=== PATIENT | female | born 1955 | race African-American/Black ===

== ENCOUNTER 2017-05-12 08:00 | Inpatient (IN) | payer OTHER ==
[~2017-05-12] VITALS: Ht 152.4 cm; Wt 86.3 kg
[2017-06-03] MEDS ORDERED: LISI40TA PO (12:27)
[2017-06-03] MEDS ORDERED: FURO1TAB60 PO (12:28)
[2017-06-03] MEDS ORDERED: PROV10TA PO (14:24)
[2017-06-03] MEDS ORDERED: LEVO75TA3 PO (14:24)
[2017-06-03] MEDS ORDERED: ESTR1TAB PO (14:24)
[2017-06-23] MEDS ORDERED: LACTATED RINGER'S 1000 ML IV PRN (06:45)
[2017-06-23] MEDS ORDERED: SODIUM CHLORID 0.9% 500 ML IV PRN (06:45)
[2017-06-23] MEDS ORDERED: CHLORHEXIDINE GLUCONATE 2 % 1 PACK (2 CLOTHS) TOPICAL PRN (06:45)
[2017-06-23] MEDS ORDERED: METOPROLOL TARTRATE 25 MG TAB PO PRN (06:45)
[2017-06-23] MEDS ORDERED: ceFAZolin 2 GM PREMIX 50 ML IV SCH (06:45)
[2017-06-23] MEDS ORDERED: POVIDONE IODINE 5% (ANTISEPSIS KIT) 4 APPLICATIONS EACH NARE PRN (06:45)
--- NOTE | 2017-06-23 06:57 | RADRPT ---
EXAM DATE/TIME: 06/23/2017 06:43 [place] COMPARISON: No previous studies available for comparison. INDICATIONS : Evaluate for pneumonia, pneumothorax and communicable disease. MEDICAL HISTORY : None. SURGICAL HISTORY : None. ENCOUNTER: Initial ACUITY: 1 day PAIN SCORE: 0/10 LOCATION: Bilateral chest FINDINGS: A single view of the chest demonstrates the lungs to be symmetrically aerated without evidence of mas s, infiltrate or effusion. The cardiomediastinal contours are unremarkable. Osseous structures are intact. CONCLUSION: Normal examination. Robe Guidry MD on June 23, 2017 at 6:55 Board Certified Radiologist. This report was verified electronically.
[2017-06-23] MEDS ORDERED: ACETAMINOPHEN 1000 MG/100 ML 100 ML IV ONE (07:02)
[2017-06-23] MEDS ORDERED: HYDROmorphone HCL PF 2 MG/ML VIAL ONE (07:03)
[2017-06-23] MEDS ORDERED: HYDROmorphone HCL PF 2 MG/ML VIAL IV PUSH PRN (11:00)
[2017-06-23] MEDS ORDERED: oxyCODONE/ACETAMINOPHEN 10 MG/325 MG TAB PO PRN (11:00)
[2017-06-23] MEDS ORDERED: LORazepam 0.5 MG TAB PO PRN (11:00)
[2017-06-23] MEDS ORDERED: oxyCODONE/ACETAMINOPHEN 5 MG/325 MG TAB PO PRN (11:00)
[2017-06-23] MEDS ORDERED: ONDANSETRON ODT 4 MG TAB SL PRN (11:00)
[2017-06-23] MEDS ORDERED: SODIUM CHLORIDE 0.9% FLUSH 10 ML FLUSH IV FLUSH PRN (11:00)
[2017-06-23] MEDS ORDERED: PROMETHAZINE INJ 25 MG/ML VIAL IM PRN (11:00)
[2017-06-23] MEDS ORDERED: DOCUSATE SODIUM 100 MG CAP PO PRN (11:00)
[2017-06-23] MEDS ORDERED: diphenhydrAMINE HCL 50 MG/ML VIAL IV PUSH PRN (11:00)
[2017-06-23] MEDS ORDERED: ACETAMINOPHEN 325 MG TAB PO PRN (11:00)
[2017-06-23] MEDS ORDERED: *morphine SULFATE 8 MG/ML PERIprocedure ONLY ONE ×2 (11:58→12:06)
[2017-06-23] MEDS ORDERED: DEXAMETHASONE SOD PHOS 4 MG/ML VIAL IV ONE (12:00)
[2017-06-23] MEDS ORDERED: PROPOFOL 200 MG/20 ML AMP IV ONE (12:00)
[2017-06-23] MEDS ORDERED: LIDOCAINE HCL 1% PF 5 ML AMPULE OTHER ONE (12:00)
[2017-06-23] MEDS ORDERED: KETOROLAC TROMETHAMINE 30 MG/ML (IVP) VIAL IV PUSH ONE (12:00)
[2017-06-23] MEDS ORDERED: LABETALOL HCL 100 MG/20 ML VIAL IV ONE (12:00)
[2017-06-23] MEDS ORDERED: ROCURONIUM INJ 50 MG/5 ML SYRINGE IV PUSH ONE (12:00)
[2017-06-23] MEDS ORDERED: GLYCOPYRROLATE 1 MG/5 ML SYRINGE IV PUSH ONE (12:00)
[2017-06-23] MEDS ORDERED: LACTATED RINGER'S 1000 ML INJ 1,000 ML IV ONE (12:00)
[2017-06-23] MEDS ORDERED: ONDANSETRON HCL 4 MG/2 ML VIAL IV PUSH ONE (12:00)
[2017-06-23] MEDS ORDERED: SODIUM CHLORIDE 0.9% 20 ML VIAL IV ONE (12:00)
[2017-06-23] MEDS ORDERED: NEOSTIGMINE 3 MG/3 ML SYR IV ONE (12:00)
[2017-06-23] MEDS ORDERED: MIDAZOLAM HCL 2 MG/2 ML VIAL IV ONE (12:00)
[2017-06-23] MEDS: D5-1/2 NS + KCL 20 MEQ INJ 1,000 ML IV SCH ×2 (12:03→19:00)
[2017-06-23] MEDS ORDERED: DO NOT ADM ANY ANTICOAGULANT DRUGS PRN (12:15)
[2017-06-23] MEDS ORDERED: PILL SPLITTER OTHER PRN (12:15)
[2017-06-23] MEDS ORDERED: *MEPERIDINE 25 MG INJ VIAL PERIprocedural Use ONLY ONE (12:27)
[2017-06-23 13:28] VITALS: BP 153/77; PULSE 73; RESP 17; TEMP 97.3; O2SAT 98
[2017-06-23 16:35] VITALS: BP_SYST 157; BP_SYST 168; BP_DIAS 91; BP_DIAS 97; PULSE 78; RESP 16; TEMP 98.3; O2SAT 96; O2SAT 97
[2017-06-23 19:25] VITALS: BP 165/91; PULSE 97; RESP 16; TEMP 99; O2SAT 99
[2017-06-23] MEDS: SODIUM CHLORIDE 0.9% FLUSH 10 ML FLUSH IV FLUSH SCH (21:00)
[2017-06-23] MEDS: ZOLPIDEM TARTRATE 5 MG TAB PO PRN (21:21)
[2017-06-23 23:54] VITALS: BP 131/84; PULSE 98; RESP 18; TEMP 97.9; O2SAT 99
[2017-06-24] MEDS: D5-1/2 NS + KCL 20 MEQ INJ 1,000 ML IV SCH (02:08)
--- NOTE | 2017-06-24 03:20 | HHI.PR ---
Subjective Remarks Doing well, pain is well controlled, tolerating her diet. Objective Vital Signs Vital Signs Date Time Temp Pulse Resp B/P (MAP) Pulse Ox O2 Delivery O2 Flow Rate FiO2 06/23/17 23:54 97.9 98 18 131/84 (100) 99 06/23/17 22:33 18 06/23/17 19:25 99.0 97 16 165/91 (115) 99 06/23/17 16:35 98.3 78 16 168/91 (116) 96 06/23/17 13:28 97.3 73 17 153/77 (102) 98 06/23/17 12:45 98.3 72 16 146/76 (99) 100 Nasal Cannula 2 06/23/17 12:30 74 14 162/80 (107) 100 Nasal Cannula 2 06/23/17 12:15 73 15 144/73 (96) 100 Nasal Cannula 3 06/23/17 12:00 76 20 137/69 (91) 100 Nasal Cannula 3 06/23/17 11:48 98.2 74 15 111/85 (94) 100 Nasal Cannula 3 06/23/17 07:02 98.3 82 18 138/88 (105) 98 I/O 06/23/17 06/23/17 06/23/17 06/24/17 06/24/17 06/24/17 07:00 15:00 23:00 07:00 15:00 23:00 Intake Total 2100 ml Output Total 850 ml 125 ml Balance 1250 ml -125 ml Intake Oral 0 ml IV Total 2100 ml Output Urine Total 350 ml 125 ml Estimated Blood Loss 500 ml Other Results Allergies Coded Allergies Type Severity Reaction Last Updated Verified No Known Allergies Allergy Unknown 06/23/17 Yes Recent Impressions Chest X-Ray 06/23/17 0000 Signed Impressions: Service Date/Time: Friday, June 23, 2017 06:43 - CONCLUSION: Normal examination. Robe Guidry MD 06/22/17 06/22/17 06/23/17 06/23/17 06/24/17 06/24/17 06:00 18:00 06:00 18:00 06:00 18:00 Intake Total 2100 ml 2439 ml Output Total 975 ml 1300 ml Balance 1125 ml -1300 ml 2439 ml Intake Oral 0 ml 350 ml IV Total 2100 ml 2089 ml Output Urine Total 475 ml 1300 ml Estimated Blood Loss 500 ml Laboratory Tests Test 06/24/17 04:22 White Blood Count 10.1 TH/MM3 Red Blood Count 3.61 MIL/MM3 Hemoglobin 11.8 GM/DL Hematocrit 34.2 % Mean Corpuscular Volume 94.9 FL Mean Corpuscular Hemoglobin 32.8 PG Mean Corpuscular Hemoglobin Concent 34.5 % Red Cell Distribution Width 13.8 % Platelet Count 188 TH/MM3 Mean Platelet Volume 8.9 FL Neutrophils (%) (Auto) 78.0 % Lymphocytes (%) (Auto) 12.3 % Monocytes (%) (Auto) 9.4 % Eosinophils (%) (Auto) 0.2 % Basophils (%) (Auto) 0.1 % Neutrophils # (Auto) 7.9 TH/MM3 Lymphocytes # (Auto) 1.2 TH/MM3 Monocytes # (Auto) 0.9 TH/MM3 Eosinophils # (Auto) 0.0 TH/MM3 Basophils # (Auto) 0.0 TH/MM3 CBC Comment DIFF FINAL Differential Comment Blood Urea Nitrogen 6 MG/DL Creatinine 0.81 MG/DL Random Glucose 135 MG/DL Calcium Level 7.7 MG/DL Sodium Level 139 MEQ/L Potassium Level 3.9 MEQ/L Chloride Level 108 MEQ/L Carbon Dioxide Level 21.7 MEQ/L Anion Gap 9 MEQ/L Estimat Glomerular Filtration Rate 87 ML/MIN Orders Procedure Category Date Status Time Lactated Ringer's MED 06/23/17 Complete 1000 Ml Inj (Lr 1000 M 06:45 Sodium Chlorid 0.9% MED 06/23/17 Complete 500 Ml Inj (Ns 500 M 06:45 Metoprolol Tartrate MED 06/23/17 In Process (Lopressor) 06:45 Povidone Iod 5% MED 06/23/17 In Process Antisepsis Kit 06:45 Chlorhexidine 2% MED 06/23/17 In Process Cloth (Chlorhexidine 06:45 Type And Screen BBK 06/23/17 Complete 06:29 Chest, Single Ap RADDIAG 06/23/17 Resulted Cefazolin 2 Gm Premix MED 06/23/17 Complete (Ancef 2 Gm Premix 06:45 Acetaminophen 1000 MED 06/23/17 Complete Mg/100 Ml (Ofirmev 10 07:02 Hydromorphone Pf Inj MED 06/23/17 Complete (Dilaudid Pf Inj) 07:03 Urinary Catheter ANGEL 06/23/17 In Process Management 08:10 Furosemide (Lasix) MED 06/24/17 In Process 09:00 Levothyroxine MED 06/24/17 In Process (Synthroid) 06:00 Lisinopril (Prinivil) MED 06/24/17 In Process 09:00 Admit To Inpatient ADMITTING 06/23/17 Transmitted Vital Signs (Adult) ANGEL 06/23/17 In Process 11:00 Activity Oob Ad Rosana ANGEL 06/23/17 In Process 11:00 Intake + Output ANGEL 06/23/17 In Process 11:[address]: Blood ANGEL 06/23/17 In Process Pressure 11:00 Remove Urinary ANGEL 06/24/17 In Process Catheter 11:00 ^ Dressings ANGEL 06/23/17 In Process ^ Binder ANGEL 06/23/17 In Process 11:00 Diet Liquid DIET 06/23/17 Complete Lunch Diet Progression ANGEL 06/23/17 In Process Instructions 11:00 D5-1/2 Ns + Kcl 20 MED 06/23/17 In Process Meq Inj (D5-1/2 Ns + 11:00 Sodium Chloride 0.9% MED 06/23/17 In Process Flush (Ns Flush) 11:00 Sodium Chloride 0.9% MED 06/23/17 In Process Flush (Ns Flush) 21:00 Acetaminophen MED 06/23/17 In Process (Tylenol) 11:00 Ibuprofen (Motrin) MED 06/23/17 In Process 11:00 Oxycodone-Acetamin MED 06/23/17 In Process 5-325 Mg (Percocet 11:00 Oxycodone-Acetamin MED 06/23/17 In Process 10-325 Mg (Percocet 1 11:00 Hydromorphone Pf Inj MED 06/23/17 In Process (Dilaudid Pf Inj) 11:00 Ondansetron Odt MED 06/23/17 In Process (Zofran Odt) 11:00 Promethazine Inj MED 06/23/17 In Process (Phenergan Inj) 11:00 Diphenhydramine Inj MED 06/23/17 In Process (Benadryl Inj) 11:00 Docusate Sodium MED 06/23/17 In Process (Colace) 11:00 Zolpidem (Ambien) MED 06/23/17 In Process 11:00 Complete Blood Count LAB 06/24/17 Complete With Diff 06:00 Resp Incentive RSP 06/23/17 Logged Spirometry Lorazepam (Ativan) MED 06/23/17 In Process 11:00 Scd Bilateral/Knee ANGEL 06/23/17 Complete High 11:00 Inpatient ADMITTING 06/23/17 Transmitted Certification Basic Metabolic Panel LAB 06/24/17 Complete (Bmp) 06:00 *Morphine Inj MED 06/23/17 Complete (*Morphine Inj 11:58 Misc Nursing MED 06/23/17 In Process Information 12:15 *Morphine Inj MED 06/23/17 Complete (*Morphine Inj 12:06 Pill Splitter (Pill MED 06/23/17 In Process Splitter) 12:15 *Meperidine Inj MED 06/23/17 Complete (*Demerol Inj 12:27 Am Admit Pre Op Care [facility] 06/23/17 Complete Diet Regular Basic DIET 06/23/17 Transmitted Dinner Class Iv Pacu Ea 30 [facility] 06/23/17 Complete MIN General/Pacu [facility] 06/23/17 Complete Post Anesthesia Oxygen [facility] 06/23/17 Complete Vital Signs Date Time Temp Pulse Resp B/P (MAP) Pulse Ox O2 Delivery O2 Flow Rate FiO2 06/24/17 04:10 99.4 92 20 153/80 (104) 98 06/23/17 23:54 97.9 98 18 131/84 (100) 99 06/23/17 22:33 18 06/23/17 19:25 99.0 97 16 165/91 (115) 99 06/23/17 16:35 98.3 78 16 168/91 (116) 96 06/23/17 13:28 97.3 73 17 153/77 (102) 98 06/23/17 12:45 98.3 72 16 146/76 (99) 100 Nasal Cannula 2 06/23/17 12:30 74 14 162/80 (107) 100 Nasal Cannula 2 06/23/17 12:15 73 15 144/73 (96) 100 Nasal Cannula 3 06/23/17 12:00 76 20 137/69 (91) 100 Nasal Cannula 3 06/23/17 11:48 98.2 74 15 111/85 (94) 100 Nasal Cannula 3 06/23/17 07:02 98.3 82 18 138/88 (105) 98 Objective Remarks Chest is clear, CV regular rate and rhythm. Abdomen is soft and non-distended. Incision is clean and dry. Ext no CCE. A/P Assessment and Plan Post Op Day 1 S/P JAKE/BSO for large fibriod uterus Doing well Plan to D/C home on POD #2 or #3 Check am labs. Suhail Sears MD Jun 24, 2017 03:20
[2017-06-24 04:10] VITALS: BP 153/80; PULSE 92; RESP 20; TEMP 99.4; O2SAT 98
[2017-06-24 05:59] LABS: AUTOMATED NEUTROPHIL # 7.9 TH/MM3 (1.8-7.7); BASOPHIL % 0.1 % (0.0-2.0); EOSINOPHIL % 0.2 % (0.0-4.0); HEMATOCRIT 34.2 % (35.0-46.0); HEMO FLAGS DIFF FINAL; LYMPH % 12.3 % (9.0-44.0); LYMPHOCYTE # 1.2 TH/MM3 (1.0-4.8); MEAN CELL VOLUME 94.9 FL (80.0-100.0); MEAN CORPUSCULAR HEMOGLOBIN 32.8 PG (27.0-34.0); MEAN CORPUSCULAR HGB CONC 34.5 % (32.0-36.0); MONO % 9.4 % (0.0-8.0); PLATELET COUNT 188 TH/MM3 (150-450); RED BLOOD COUNT 3.61 MIL/MM3 (4.00-5.30); RED CELL DISTRIBUTION WIDTH 13.8 % (11.6-17.2); WHITE BLOOD COUNT 10.1 TH/MM3 (4.0-11.0)
--- NOTE | 2017-06-24 06:13 | MP ---
cc: CONCEPCION JC DATE OF SURGERY June 23, 2017 PREOPERATIVE DIAGNOSES 1. Pelvic pain. 2. Huge myomatous uterus. POSTOPERATIVE DIAGNOSES 1. Pelvic pain. 2. Huge myomatous uterus. 3. A 7 x 8 cm left ovarian mass, most likely fibroid. PROCEDURE Total abdominal hysterectomy, bilateral salpingo-oophorectomy. ANESTHESIA General endotracheal intubation. SURGEON Suhail Jc MD FINDINGS Examination under anesthesia revealed a uterus just below the umbilicus that was markedly irregular and mobile. The laparotomy revealed an 18-week sized uterus with multiple subserosal fibroids and a markedly enlarged left ovary. Fallopian tubes were normal. The posterior and anterior cul-de-sac were normal but the posterior cul-de-sac was somewhat deep. COMPLICATIONS None. COUNTS Correct. ESTIMATED BLOOD LOSS 500 cc. FLUIDS Crystalloids. CONDITION The patient tolerated the procedure well and went to the recovery room in satisfactory condition. PROCEDURE IN DETAIL The patient was taken to the operating room, identified by name band and verbally, given a general anesthetic and frog-legged for Nicholas placement and examination under anesthesia. She was then prepped and draped in the usual sterile manner for abdominal surgery. Her previous abdominoplasty scar was inspected and a generous incision was made because of the large size of this uterus and the old scar was removed. The incision was taken down to the fascia. The fascia was dissected away from the rectus muscle by sharp and blunt dissection. The rectus muscles were firmly adhered to each other and once we hit the midline we opened up and spread the muscle bellies of the rectus muscle. The peritoneum was entered under direct vision and the incision was extended with care to avoid the urinary bladder. We attempted to put a self-retaining retractor in at this time; however, we were not successful. The uterus was then lifted up to the incision. The round ligaments were taken with 0 Vicryl pop-offs bilaterally and the beginning of the bladder flap was started. The left ovary was 8 cm, very firm, felt like a fibroma. The infundibulopelvic ligament was identified and taken close to the ovary with two Belkis clamps and 0 Vicryl pop-off and free tie. This was repeated on the contralateral side. The broad ligament was then taken down to the level of the internal cervical os. There was a large fibroid right above the internal cervical os which made the dissection difficult. The bladder flap was more fully developed and once the bladder flap was well out of harm's way, the uterine vessels were taken with Elyse clamps at the level of the internal cervical os. At this point visualization was very difficult to get the cardinal ligament down so we transected the cervix. The cervix was then grasped after the specimen was handed off and the cardinal ligament was taken down very close to the cervix with Syed clamps until the apex of the vagina was attained. The vagina was then sharply incised and with Onel scissors the cervix was removed. Two Granados sutures were placed laterally which controlled the bleeding well. The remainder of the cuff was closed with 0 Vicryl in a [id number] fashion. Hemostasis was excellent. At this point there was some bleeding around the bladder and it took several stitches of 3-0 chromic to make that hemostatic. Once this had been accomplished, the pelvis was irrigated with large amount of fluids and all the pedicles were inspected and were dry. At this point all the laps were removed and the self-retaining retractor that we had placed after the uterus had been removed to repair the cuff. The rectus muscles were then reapproximated with 0 Vicryl in a running fashion. The fascia was repaired with #1 PDS loop in a running fashion. The subcu was repaired with 2-0 Vicryl and the skin was repaired with a 4-0 Monocryl in subcuticular manner. The patient tolerated the procedure well and went to the recovery room in good condition. RMD AZALEA Garcia/MACARIO /3:06 AM /5:59 AM
[2017-06-24 06:24] LABS: BICARBONATE 21.7 MEQ/L (21.0-32.0); POTASSIUM 3.9 MEQ/L (3.5-5.1)
[2017-06-24] MEDS: LEVOTHYROXINE SODIUM 75 MCG TAB PO SCH (06:26)
[2017-06-24 08:00] VITALS: BP 151/86; PULSE 91; RESP 14; TEMP 98.6; O2SAT 99
[2017-06-24] MEDS: SODIUM CHLORIDE 0.9% FLUSH 10 ML FLUSH IV FLUSH SCH ×2 (09:00→21:59)
[2017-06-24] MEDS: FUROSEMIDE 40 MG TAB PO SCH (09:20)
[2017-06-24] MEDS: LISINOPRIL 20 MG TAB PO SCH (09:21)
[2017-06-24 12:00] VITALS: BP 128/71; PULSE 84; RESP 14; TEMP 99.1; O2SAT 100
[2017-06-24 17:17] VITALS: BP 115/74; PULSE 84; RESP 16; TEMP 98.6; O2SAT 100
[2017-06-24 20:00] VITALS: BP 114/78; PULSE 98; RESP 16; TEMP 98.3; O2SAT 100
[2017-06-24] MEDS: ZOLPIDEM TARTRATE 5 MG TAB PO PRN (21:59)
[2017-06-25 00:10] VITALS: BP 86/52; PULSE 106; RESP 16; TEMP 98.4; O2SAT 96
[2017-06-25] MEDS: LEVOTHYROXINE SODIUM 75 MCG TAB PO SCH (06:31)
[2017-06-25 07:45] VITALS: BP 125/82; PULSE 101; RESP 20; TEMP 98.6
[2017-06-25] MEDS: IBUPROFEN 600 MG TAB PO PRN ×2 (08:07→16:33)
--- NOTE | 2017-06-25 08:17 | HHI.PR ---
Subjective Remarks Doing well, pain is well controlled, eating well. Objective Vital Signs Vital Signs Date Time Temp Pulse Resp B/P (MAP) Pulse Ox O2 Delivery O2 Flow Rate FiO2 06/25/17 00:10 98.4 106 16 86/52 (63) 96 06/24/17 20:00 98.3 98 16 114/78 (90) 100 06/24/17 17:17 98.6 84 16 115/74 (88) 100 06/24/17 12:00 99.1 84 14 128/71 (90) 100 I/O 06/24/17 06/24/17 06/24/17 06/25/17 06/25/17 06/25/17 07:00 15:00 23:00 07:00 15:00 23:00 Intake Total 2439 ml 890 ml Output Total 1300 ml 1050 ml Balance 1139 ml -160 ml Intake Oral 350 ml 480 ml IV Total 2089 ml 410 ml Output Urine Total 1300 ml 1050 ml # Voids 5 3 # Bowel Movements 0 Result Diagram: 06/24/17 04206/[id number]/17421 Objective Remarks Chest is clear, CV regular rate and rhythm. Abdomen is soft and non-distended. Incision is clean and dry. Ext no CCE. A/P Assessment and Plan Post Op Day 2 S/P JAKE/BSO for large fibriod uterus Doing well Plan to D/C home Suhail Sears MD Jun 25, 2017 08:17
[2017-06-25 08:33] VITALS: BP 131/75; PULSE 97
[2017-06-25] MEDS: FUROSEMIDE 40 MG TAB PO SCH (08:35)
[2017-06-25] MEDS: LISINOPRIL 20 MG TAB PO SCH (08:35)
[2017-06-25 12:32] VITALS: BP 97/62; PULSE 104; RESP 16; TEMP 98.3; O2SAT 98
[2017-06-25 16:42] VITALS: BP 110/69; PULSE 98; RESP 18; TEMP 98; O2SAT 99
--- NOTE | 2017-06-25 16:46 | HHI.DCPOC ---
Discharge Care Plan Diagnosis: (1) H/O hysterectomy for benign disease (2) Uterine myoma Report Symptoms to Your Doctor -Temperature above 100.5 degrees -Redness, of incision or excessive or foul smelling drainage -Unusual pain or calf pain -Increased vaginal bleeding -Painful or difficulty urinating -Feelings of extreme sadness or anxiety after 2 weeks Goals to Promote Your Health * To prevent worsening of your condition and complications * To maintain your health at the optimal level Directions to Meet Your Goals Take your medications as prescribed Follow your dietary instruction Follow activity as directed Ensure plenty of rest for recovery Drink fluids for hydration Keep your appointments as scheduled Take your immunizations and boosters as scheduled If your symptoms worsen call your PCP, if no PCP go to Urgent Care Center or Emergency Room Smoking is Dangerous to Your Health. Avoid second hand smoke Call the 24-hour crisis hotline for domestic abuse at Suhail Sears MD Jun 25, 2017 16:46
== END 2017-06-25 17:02 | disposition home or self-care (01) | DRG 743 ==
LOC: HSDI 06-23 06:04 → H1EA 06-23 13:06
PROVIDERS: ADMIT Obstetrics & Gynecology; ATTEND Obstetrics & Gynecology
PROC: 0UT70ZZ Resection of Bilateral Fallopian Tubes, Open Approach (ICD-10-PCS; 2017-06-23)
PROC: 0UT20ZZ Resection of Bilateral Ovaries, Open Approach (ICD-10-PCS; 2017-06-23)
PROC: 0UT90ZZ Resection of Uterus, Open Approach (ICD-10-PCS; principal; 2017-06-23 07:59)
DX: D25.2 Subserosal leiomyoma of uterus (principal); I10 Essential (primary) hypertension; D27.1 Benign neoplasm of left ovary; E03.9 Hypothyroidism, unspecified
CPT/HCPCS: 71010; 80048; 85025; 86850; 86900; 86901; 88307; 88311; 94150; J0131; J0690; J1100; J1170; J1885; J2175; J2250; J2270; J2405; J2710; J3010; J3480; J7120

== ENCOUNTER → 2017-06-03 | Outpatient (CLI) | payer OTHER ==
[~2017-06-03] MED LIST: ESTR1TAB PO; FURO1TAB60 PO; HYDR-2951 PO; LEVO75TA3 PO; LEVO75TA42 PO; LISI40TA PO; PREN0.01 PO; PROV10TA PO; VERA40TA PO
[2017-06-03 14:28] LABS: AUTOMATED NEUTROPHIL # 3.6 TH/MM3 (1.8-7.7); BASOPHIL % 0.7 % (0.0-2.0); EOSINOPHIL # 0.1 TH/MM3 (0-0.4); EOSINOPHIL % 1.2 % (0.0-4.0); HEMATOCRIT 43.8 % (35.0-46.0); HEMO FLAGS DIFF FINAL; LYMPH % 33.5 % (9.0-44.0); LYMPHOCYTE # 2.1 TH/MM3 (1.0-4.8); MEAN CELL VOLUME 93.4 FL (80.0-100.0); MEAN CORPUSCULAR HEMOGLOBIN 31.8 PG (27.0-34.0); MONO % 8.3 % (0.0-8.0); NEUT % 56.3 % (16.0-70.0); PLATELET COUNT 235 TH/MM3 (150-450); RED BLOOD COUNT 4.69 MIL/MM3 (4.00-5.30); RED CELL DISTRIBUTION WIDTH 13.3 % (11.6-17.2); WHITE BLOOD COUNT 6.3 TH/MM3 (4.0-11.0)
[2017-06-03 14:28] LABS: BACTERIA, URINE OCC /hpf; BLOOD, URINE TRACE (NEG); GLUCOSE,URINE NEG (NEG); KETONE, URINE NEG (NEG); MUCUS URINE FEW /lpf (OCC); NITRITE,URINE NEG (NEG); PH, URINE 5.5 (5.0-8.5); SQUAMOUS EPITHELIAL CELL URINE 6 /hpf (0-5); URINE COLOR YELLOW (YELLW/STRAW)
[2017-06-03 14:47] LABS: BICARBONATE 27.8 MEQ/L (21.0-32.0); POTASSIUM 3.4 MEQ/L (3.5-5.1)
--- NOTE | 2017-06-04 22:03 | EKG ---
Date Performed: 06/03/2017 Time Performed: 13:16:53 PTAGE: 62 years EKG: Sinus rhythm MARKED LEFT AXIS DEVIATION PATTERN CONSISTENT WITH PULMONARY DISEASE MODERATE T-WAVE ABNORMALITY, CO NSIDER ANTERIOR ISCHEMIA ABNORMAL ECG NO PREVIOUS TRACING DOCTOR: Poli Cordero Interpretating Date/Time 06/04/2017 21:41:08
== END ==
LOC: CPRE 13:30
PROVIDERS: ATTEND Obstetrics & Gynecology
DX: Z01.810 Encounter for preprocedural cardiovascular examination (principal); Z01.812 Encounter for preprocedural laboratory examination; R94.31 Abnormal electrocardiogram [ECG] [EKG]
CPT/HCPCS: 36415; 80048; 81001; 85025; 93005